=== PATIENT | female | born 1985 | race Caucasian/White ===

== ENCOUNTER 2017-07-31 14:26 | Outpatient (CLI) | END 2017-07-31 18:05 | disposition home or self-care (01) ==

== ENCOUNTER 2017-08-01 20:27 | Outpatient (CLI) | END 2017-08-02 01:15 | disposition home or self-care (01) ==

== ENCOUNTER 2017-08-06 05:23 | Inpatient (IN) | END 2017-08-09 15:56 | disposition home or self-care (01) | DRG 766 ==